=== PATIENT | male | born 1945 | race Two or more races ===

== ENCOUNTER → 2016-08-02 | Outpatient (CLI) | payer MEDICARE, OTHER ==
[~2016-08-02] MED LIST: ALUMSUS; ASPI81CH49; CAPT50TA; CIPR-173; CYCL5TAB; GLYB5TAB8; METF850T; NAPR-604; SIMV-8; TAMS0.4C36
[2016-08-02 15:44] LABS: Basophils # (auto) 0.1 uL; Basophils % (auto) 0.5 % (0.0-2.0); Eosinophils # (auto) 0.1 uL; Eosinophils % (auto) 1.2 % (0.0-7.0); Hematocrit 27.8 % (41.0-53.0); Lymphocytes # (auto) 2.1 uL; Lymphocytes % (auto) 18.5 % (10.0-50.0); Mean Corpuscular Hemoglobin 27.8 pg (28.0-32.0); Mean Corpuscular Hgb Conc. 32.2 g/dL (32.0-36.0); Mean Corpuscular Volume 86.5 fL (80.0-100.0); Mean Platelet Volume 9.7 fL (7.4-10.4); Monocytes # (auto) 0.8 uL; Monocytes % (auto) 7.4 % (0.0-12.0); Neutrophils # (auto) 8.2 uL; Neutrophils % (auto) 72.4 % (37.0-80.0); Platelet Count (auto) 399 10^3/uL (140-450); Red Cell Distribution Width 16.8 % (11.6-16.0); White Blood Cell 11.3 10^3/uL (4.4-10.8)
[2016-08-02 15:51] LABS: Urine Bilirubin Negative (Negative); Urine Color Yellow (Yellow); Urine Glucose Normal (Normal); Urine Ketone Negative (Negative); Urine Nitrite Negative (Negative); Urine Urobilinogen Normal (Negative); Urine pH 6.5 (5.0-8.0)
[2016-08-02 16:26] LABS: Urine Blood 1+ /uL (Negative)
== END | disposition home or self-care (01) ==
LOC: LAB 11:53
PROVIDERS: ATTEND Internal Medicine Cardiovascular Disease
DX: N39.0 Urinary tract infection, site not specified (principal); D64.9 Anemia, unspecified
CPT/HCPCS: 36415; 81003; 85025; 87086

== ENCOUNTER → 2016-08-06 | Outpatient (CLI) | payer MEDICARE, OTHER ==
[~2016-08-06] MED LIST changes: +CYANOCOBALAMIN (B-12) 1000 MCG/1 ML VIAL IM ONE; +CYANOCOBALAMIN (B-12) 1000 MCG/1 ML VIAL ONE
[2016-08-06 10:11] LABS: Basophils # (auto) 0 uL; Basophils % (auto) 0.3 % (0.0-2.0); DEFINITIVE VIEW TRANSMISSION; Eosinophils # (auto) 0.1 uL; Hemoglobin 10.4 g/dL (13.5-17.5); Lymphocytes % (auto) 18.5 % (10.0-50.0); Mean Corpuscular Hemoglobin 25.9 pg (28.0-32.0); Mean Corpuscular Hgb Conc. 30.6 g/dL (32.0-36.0); Mean Corpuscular Volume 84.8 fL (80.0-100.0); Monocytes # (auto) 0.3 uL; Neutrophils # (auto) 8.6 uL; Neutrophils % (auto) 77.2 % (37.0-80.0); Platelet Count (auto) 495 10^3/uL (140-450); Red Cell Distribution Width 16.8 % (11.6-16.0); White Blood Cell 11.1 10^3/uL (4.4-10.8)
[2016-08-06 10:23] LABS: BUN/Creatinine Ratio 12.8; Calcium 8.9 mg/dL (8.5-10.1); Potassium 3.7 mmol/L (3.5-5.1)
[2016-08-06 10:29] LABS: B-Type Natriuretic Peptide 436.17 pg/mL (0-100); Temperature: 22.4 C (20.0-25.0)
== END | disposition home or self-care (01) ==
LOC: Rad HDHVI 08:09
PROVIDERS: ATTEND Internal Medicine Cardiovascular Disease
DX: I10 Essential (primary) hypertension (principal); I50.9 Heart failure, unspecified; D64.9 Anemia, unspecified; I47.1 Supraventricular tachycardia; I48.91 Unspecified atrial fibrillation
CPT/HCPCS: 36415; 80048; 82962; 83880; 84484; 85025; 93306; G0463

== ENCOUNTER 2016-08-11 13:59 | Emergency (ER) | payer MEDICARE, OTHER ==
[~2016-08-11] VITALS: Ht 175.3 cm; Wt 108.9 kg
[~2016-08-11 13:59] MED LIST changes: -CYANOCOBALAMIN (B-12) 1000 MCG/1 ML VIAL IM ONE; -CYANOCOBALAMIN (B-12) 1000 MCG/1 ML VIAL ONE
[2016-08-11 15:24] LABS: Urine Bilirubin Negative (Negative); Urine Color Yellow (Yellow); Urine Glucose Normal (Normal); Urine Ketone Negative (Negative); Urine Mucus FEW (None Seen); Urine RBC 11 /hpf (0 - 3); Urine Urobilinogen Normal (Negative); Urine WBC Clumps PRESENT /hpf (None Seen); Urine pH 6.5 (5.0-8.0)
[2016-08-11 15:25] LABS: Urine Blood 2+ /uL (Negative); Urine Nitrite POSITIVE (Negative)
[2016-08-11 16:06] VITALS: BP 143/75
== END 2016-08-11 16:10 | disposition home or self-care (01) ==
LOC: ER 14:03
DX: T83.091A Other mechanical complication of indwelling urethral catheter, initial encounter (principal); R33.9 Retention of urine, unspecified; N39.0 Urinary tract infection, site not specified; E11.9 Type 2 diabetes mellitus without complications; I10 Essential (primary) hypertension; E78.5 Hyperlipidemia, unspecified; Z79.82 Long term (current) use of aspirin; Z79.899 Other long term (current) drug therapy; Z88.8 Allergy status to other drugs, medicaments and biological substances
CPT/HCPCS: 51702; 81001; 99284; J7030

== ENCOUNTER → 2016-08-13 | Outpatient (CLI) | payer MEDICARE, OTHER ==
[~2016-08-13] MED LIST changes: +GENTAMICIN SULF 80 MG/2 ML VIAL ONE; +GENTAMICIN SULFATE 160 MG in D5W 5% 100 ML IV ONE; +SODIUM CHLORIDE 0.9% 1,000 ML IV ONE
[2016-08-13 08:00] VITALS: BP 111/64
[2016-08-13 17:35] LABS: Basophils # (auto) 0 uL; Basophils % (auto) 0.5 % (0.0-2.0); DEFINITIVE VIEW TRANSMISSION; Eosinophils # (auto) 0.1 uL; Eosinophils % (auto) 1.9 % (0.0-7.0); Hematocrit 29.9 % (41.0-53.0); Hemoglobin 9.4 g/dL (13.5-17.5); Lymphocytes # (auto) 1.7 uL; Lymphocytes % (auto) 22.4 % (10.0-50.0); Mean Corpuscular Hemoglobin 25.5 pg (28.0-32.0); Mean Corpuscular Hgb Conc. 31.5 g/dL (32.0-36.0); Mean Corpuscular Volume 81.2 fL (80.0-100.0); Mean Platelet Volume 9.6 fL (7.4-10.4); Monocytes # (auto) 0.2 uL; Monocytes % (auto) 3.2 % (0.0-12.0); Neutrophils # (auto) 5.3 uL; Platelet Count (auto) 355 10^3/uL (140-450); White Blood Cell 7.4 10^3/uL (4.4-10.8)
== END | disposition home or self-care (01) ==
LOC: CHF HDHVI 07:57
PROVIDERS: ATTEND Internal Medicine Cardiovascular Disease
DX: D64.9 Anemia, unspecified (principal)
CPT/HCPCS: 36415; 85025; 85049; 96365; G0463

== ENCOUNTER → 2016-08-14 | Outpatient (CLI) | payer MEDICARE, OTHER ==
[~2016-08-14] VITALS: Ht 30.5 cm; Wt 0.5 kg
[~2016-08-14] MED LIST changes: +KETOROLAC TROMETH 60MG/2ML VIAL IM ONE; -SODIUM CHLORIDE 0.9% 1,000 ML IV ONE
[2016-08-14 08:00] VITALS: BP 142/72
[2016-08-14] MEDS: KETOROLAC TROMETH 60MG/2ML VIAL IM ONE ×2 (09:14→09:20)
[2016-08-14 09:20] VITALS: BP 132/72
== END | disposition home or self-care (01) ==
LOC: CHF HDHVI 09:42
PROVIDERS: ATTEND Internal Medicine Cardiovascular Disease
DX: I50.9 Heart failure, unspecified (principal); N39.0 Urinary tract infection, site not specified; M25.561 Pain in right knee
CPT/HCPCS: 82962; 96372; 96374; J1580; J1885; 96365

== ENCOUNTER → 2016-08-15 | Outpatient (CLI) | payer MEDICARE, OTHER ==
[~2016-08-15] MED LIST changes: -KETOROLAC TROMETH 60MG/2ML VIAL IM ONE
[2016-08-15 08:00] VITALS: BP 127/55
[2016-08-15 10:29] VITALS: BP 122/51
[2016-08-15 12:58] LABS: Basophils # (auto) 0 uL; Basophils % (auto) 0.6 % (0.0-2.0); DEFINITIVE VIEW TRANSMISSION; Eosinophils # (auto) 0.2 uL; Eosinophils % (auto) 2.7 % (0.0-7.0); Lymphocytes # (auto) 1.7 uL; Lymphocytes % (auto) 23.3 % (10.0-50.0); Mean Corpuscular Hemoglobin 24.8 pg (28.0-32.0); Mean Corpuscular Hgb Conc. 31.2 g/dL (32.0-36.0); Mean Corpuscular Volume 79.5 fL (80.0-100.0); Mean Platelet Volume 9.9 fL (7.4-10.4); Monocytes # (auto) 0.3 uL; Monocytes % (auto) 3.4 % (0.0-12.0); Neutrophils # (auto) 5.2 uL; Platelet Count (auto) 409 10^3/uL (140-450); Red Cell Distribution Width 18.4 % (11.6-16.0); White Blood Cell 7.5 10^3/uL (4.4-10.8)
[2016-08-15 13:40] LABS: BUN/Creatinine Ratio 11.8; Calcium 8.4 mg/dL (8.5-10.1); Potassium 4.3 mmol/L (3.5-5.1)
== END | disposition home or self-care (01) ==
LOC: CHF HDHVI 08:04
PROVIDERS: ATTEND Internal Medicine Cardiovascular Disease
DX: I10 Essential (primary) hypertension (principal); D64.9 Anemia, unspecified
CPT/HCPCS: 36415; 80048; 85025; 85049; 93017; 93971; 96365; G0463

== ENCOUNTER → 2016-08-16 | Outpatient (CLI) | payer MEDICARE, OTHER ==
[~2016-08-16] MED LIST changes: -GENTAMICIN SULF 80 MG/2 ML VIAL ONE; -GENTAMICIN SULFATE 160 MG in D5W 5% 100 ML IV ONE
== END | disposition home or self-care (01) ==
LOC: Rad HDHVI 09:19
PROVIDERS: ATTEND Internal Medicine Cardiovascular Disease
DX: N20.0 Calculus of kidney (principal); N28.1 Cyst of kidney, acquired; N40.0 Benign prostatic hyperplasia without lower urinary tract symptoms; I70.0 Atherosclerosis of aorta
CPT/HCPCS: 74176

== ENCOUNTER → 2016-08-19 | Outpatient (CLI) | payer MEDICARE, OTHER ==
[~2016-08-19] VITALS: Ht 175.3 cm; Wt 115.2 kg
[~2016-08-19] MED LIST changes: +ADENOSINE 90 MG/30 ML INJ IV ONE; +ADENOSINE 97 MG in GIVE UN-DILUTED 0 ML IV ONE
== END | disposition home or self-care (01) ==
LOC: Rad HDHVI 13:40
PROVIDERS: ATTEND Internal Medicine Cardiovascular Disease
DX: R07.9 Chest pain, unspecified (principal); R06.02 Shortness of breath; R42 Dizziness and giddiness; I10 Essential (primary) hypertension; Z82.49 Family history of ischemic heart disease and other diseases of the circulatory system
CPT/HCPCS: 78452; 93005; 96374; 96375; A9500; J0153

== ENCOUNTER → 2016-08-22 | Outpatient (CLI) | payer MEDICARE, OTHER ==
[~2016-08-22] MED LIST changes: -ADENOSINE 90 MG/30 ML INJ IV ONE; -ADENOSINE 97 MG in GIVE UN-DILUTED 0 ML IV ONE
[2016-08-22 09:45] VITALS: BP 146/56
[2016-08-22 10:15] VITALS: BP 117/65
== END | disposition home or self-care (01) ==
LOC: CHF HDHVI 09:47
PROVIDERS: ATTEND Internal Medicine Cardiovascular Disease
DX: I11.0 Hypertensive heart disease with heart failure (principal); D64.9 Anemia, unspecified; E11.9 Type 2 diabetes mellitus without complications; I82.499 Acute embolism and thrombosis of other specified deep vein of unspecified lower extremity
CPT/HCPCS: G0463

== ENCOUNTER → 2016-08-28 | Outpatient (CLI) | payer MEDICARE, OTHER ==
[~2016-08-28] VITALS: Ht 30.5 cm; Wt 0.5 kg
[~2016-08-28] MED LIST changes: +FUROSEMIDE 40 MG/4 ML VIAL IV ONE; +FUROSEMIDE 40 MG/4 ML VIAL ONE; +POTASSIUM CHL 10 Meq TABLET PO ONE
[2016-08-28 12:45] VITALS: BP 118/72
[2016-08-28 13:06] VITALS: BP 111/71
[2016-08-28 16:39] LABS: Calcium 8.8 mg/dL (8.5-10.1); Potassium 4.1 mmol/L (3.5-5.1)
[2016-08-28 17:08] LABS: BUN/Creatinine Ratio 12.6
[2016-08-28 17:09] LABS: B-Type Natriuretic Peptide 277.13 pg/mL (0-100)
== END | disposition home or self-care (01) ==
LOC: CHF HDHVI 12:44
PROVIDERS: ATTEND Internal Medicine Cardiovascular Disease
DX: I10 Essential (primary) hypertension (principal); I50.9 Heart failure, unspecified
CPT/HCPCS: 36415; 80048; 82962; 83880; G0463

== ENCOUNTER → 2016-09-04 | Outpatient (CLI) | payer MEDICARE, OTHER ==
[~2016-09-04] MED LIST changes: +POTASSIUM CHL 20 Meq TABLET PO ONE
[2016-09-04 12:30] VITALS: BP 115/68
[2016-09-04 12:52] VITALS: BP 118/59
== END | disposition home or self-care (01) ==
LOC: CHF HDHVI 12:41
PROVIDERS: ATTEND Internal Medicine Cardiovascular Disease
DX: I10 Essential (primary) hypertension (principal); I50.9 Heart failure, unspecified; R06.02 Shortness of breath; R07.9 Chest pain, unspecified
CPT/HCPCS: 96374; G0463; J1940; 96365

== ENCOUNTER → 2016-09-09 | Outpatient (CLI) | payer MEDICARE, OTHER ==
[~2016-09-09] MED LIST changes: +FUROSEMIDE 100 MG/10ML VIAL IV ONE; -FUROSEMIDE 40 MG/4 ML VIAL IV ONE
[2016-09-09 08:35] VITALS: BP_SYST 79
[2016-09-09 13:39] LABS: BUN/Creatinine Ratio 12.5; Calcium 8.5 mg/dL (8.5-10.1); Magnesium 2.3 mg/dL (1.6-2.6); Potassium 4.4 mmol/L (3.5-5.1)
== END | disposition home or self-care (01) ==
LOC: LAB 07:51
PROVIDERS: ATTEND Internal Medicine Cardiovascular Disease
DX: I10 Essential (primary) hypertension (principal); E83.40 Disorders of magnesium metabolism, unspecified
CPT/HCPCS: 36415; 80048; 83735; 96374; G0463

== ENCOUNTER → 2016-09-20 | Outpatient (CLI) | payer MEDICARE, OTHER ==
[~2016-09-20] VITALS: Ht 172.7 cm; Wt 70.0 kg
[~2016-09-20] MED LIST changes: -ALUMSUS; +APIX2.5T OR; -ASPI81CH49; -CAPT50TA; +CARI350T21 PO; -CIPR-173; +CYANOCOBALAMIN (B-12) 1000 MCG/1 ML VIAL IM ONE; +CYANOCOBALAMIN (B-12) 1000 MCG/1 ML VIAL ONE; -CYCL5TAB; +DILT360C24 PO; +FINA5TAB4 PO; +FURO40TA4 PO; -FUROSEMIDE 100 MG/10ML VIAL IV ONE; +FUROSEMIDE 20 MG/2 ML VIAL IV ONE; +FUROSEMIDE 20 MG/2 ML VIAL ONE; +FUROSEMIDE 40 MG/4 ML VIAL IV ONE; +GLIP-115 PO; -GLYB5TAB8; +HCTZ25T PO; +LEVO500T3 PO; +METF-490 PO; -METF850T; -NAPR-604; +PANT40T PO; -POTASSIUM CHL 10 Meq TABLET PO ONE; -SIMV-8; -TAMS0.4C36
[2016-09-20 08:00] VITALS: BP 133/94
[2016-09-20 09:25] VITALS: BP 126/77
== END | disposition home or self-care (01) ==
LOC: CHF HDHVI 08:01
PROVIDERS: ATTEND Internal Medicine Cardiovascular Disease
DX: I11.0 Hypertensive heart disease with heart failure (principal); I50.9 Heart failure, unspecified; I82.409 Acute embolism and thrombosis of unspecified deep veins of unspecified lower extremity; D64.9 Anemia, unspecified; N39.0 Urinary tract infection, site not specified
CPT/HCPCS: 96372; 96374; G0463; J1940; J3420

== ENCOUNTER 2016-09-22 20:21 | Emergency (ER) | payer MEDICARE, OTHER ==
[~2016-09-22] VITALS: Ht 175.3 cm; Wt 111.1 kg
[~2016-09-22 20:21] MED LIST changes: -CYANOCOBALAMIN (B-12) 1000 MCG/1 ML VIAL IM ONE; -CYANOCOBALAMIN (B-12) 1000 MCG/1 ML VIAL ONE; -FUROSEMIDE 20 MG/2 ML VIAL IV ONE; -FUROSEMIDE 20 MG/2 ML VIAL ONE; -FUROSEMIDE 40 MG/4 ML VIAL IV ONE; -FUROSEMIDE 40 MG/4 ML VIAL ONE; -POTASSIUM CHL 20 Meq TABLET PO ONE
[2016-09-22 20:53] VITALS: BP 155/72
== END 2016-09-22 22:02 | disposition home or self-care (01) ==
LOC: ER 20:32
DX: T83.098A Other mechanical complication of other urinary catheter, initial encounter (principal); Z76.1 Encounter for health supervision and care of foundling; Z46.6 Encounter for fitting and adjustment of urinary device; Z91.041 Radiographic dye allergy status; E11.9 Type 2 diabetes mellitus without complications; E78.5 Hyperlipidemia, unspecified; I10 Essential (primary) hypertension; Y93.89 Activity, other specified; Y99.8 Other external cause status; Y92.89 Other specified places as the place of occurrence of the external cause
CPT/HCPCS: 51702

== ENCOUNTER → 2016-09-25 | Outpatient (CLI) | payer MEDICARE, OTHER ==
[2016-09-25 12:10] LABS: Basophils # (auto) 0 uL; Basophils % (auto) 0.6 % (0.0-2.0); DEFINITIVE VIEW TRANSMISSION; Eosinophils # (auto) 0.1 uL; Eosinophils % (auto) 1.4 % (0.0-7.0); Hematocrit 33.5 % (41.0-53.0); Hemoglobin 10.2 g/dL (13.5-17.5); Lymphocytes % (auto) 26.3 % (10.0-50.0); Mean Corpuscular Hemoglobin 21.6 pg (28.0-32.0); Mean Corpuscular Hgb Conc. 30.6 g/dL (32.0-36.0); Mean Corpuscular Volume 70.6 fL (80.0-100.0); Mean Platelet Volume 10.6 fL (7.4-10.4); Monocytes # (auto) 0.4 uL; Monocytes % (auto) 4.7 % (0.0-12.0); Neutrophils # (auto) 5.2 uL; Platelet Count (auto) 360 10^3/uL (140-450); Red Cell Distribution Width 18.9 % (11.6-16.0); White Blood Cell 7.7 10^3/uL (4.4-10.8)
== END | disposition home or self-care (01) ==
LOC: CHF HDHVI 09:04
PROVIDERS: ATTEND Internal Medicine Cardiovascular Disease
DX: D64.9 Anemia, unspecified (principal)
CPT/HCPCS: 36415; 85025

== ENCOUNTER → 2016-10-30 | Outpatient (CLI) | payer MEDICARE, OTHER ==
[2016-10-30 10:25] VITALS: BP 143/67
[2016-10-30 11:00] VITALS: BP 136/70
[2016-10-30 12:14] LABS: Basophils # (auto) 0 uL; Basophils % (auto) 0.6 % (0.0-2.0); DEFINITIVE VIEW TRANSMISSION; Eosinophils # (auto) 0.1 uL; Eosinophils % (auto) 1.3 % (0.0-7.0); Hematocrit 35.6 % (41.0-53.0); Hemoglobin 10.8 g/dL (13.5-17.5); Lymphocytes # (auto) 1.7 uL; Lymphocytes % (auto) 23.2 % (10.0-50.0); Mean Corpuscular Hgb Conc. 30.4 g/dL (32.0-36.0); Mean Corpuscular Volume 65.6 fL (80.0-100.0); Mean Platelet Volume 10.3 fL (7.4-10.4); Monocytes # (auto) 0.4 uL; Monocytes % (auto) 4.8 % (0.0-12.0); Neutrophils # (auto) 5.2 uL; Neutrophils % (auto) 70.1 % (37.0-80.0); Platelet Count (auto) 337 10^3/uL (140-450); Red Cell Distribution Width 19.1 % (11.6-16.0); White Blood Cell 7.4 10^3/uL (4.4-10.8)
[2016-10-30 12:59] LABS: Potassium 3.6 mmol/L (3.5-5.1)
[2016-10-30 13:32] LABS: INR 0.93 (0.9-1.15); Partial Thromboplastin Time 25.9 sec (22.64-33.71)
[2016-10-30 13:56] LABS: Burr Cells FEW; Ovalocytes MODE
[2016-10-30 13:57] LABS: Platelet Estimate Adequate
[2016-10-30 13:58] LABS: Anisocytosis Slight
[2016-10-30 13:59] LABS: Hypochromia Marked; Microcytosis Marked
== END | disposition home or self-care (01) ==
LOC: Rad HDHVI 10:01
PROVIDERS: ATTEND Internal Medicine Cardiovascular Disease
DX: I10 Essential (primary) hypertension (principal); D64.9 Anemia, unspecified; R79.1 Abnormal coagulation profile; Z01.812 Encounter for preprocedural laboratory examination
CPT/HCPCS: 36415; 71020; 80048; 85025; 85610; 85730; 93005; G0463

== ENCOUNTER → 2016-10-31 | Day surgery (SDC) | payer MEDICARE, OTHER ==
[~2016-10-31] MED LIST changes: +LIDOCAINE 2%HCL (LOCAL ANESTH.) INJ 20ML MDV ONE; +diphenhdrAMINE HCL 50 MG/1 ML VL IV ONE; +methylPREDNISolone SOD SUCC 125 MG/2 ML VL IV ONE
== END | disposition home or self-care (01) ==
LOC: CATH 09:10
PROVIDERS: ATTEND Internal Medicine Cardiovascular Disease
DX: Z95.828 Presence of other vascular implants and grafts (principal); I82.499 Acute embolism and thrombosis of other specified deep vein of unspecified lower extremity; I10 Essential (primary) hypertension; E78.5 Hyperlipidemia, unspecified
CPT/HCPCS: 37191; J1200; J1644; J2930

== ENCOUNTER 2017-02-23 10:38 | Emergency (ER) | payer MEDICARE, OTHER ==
[~2017-02-23] VITALS: Ht 175.3 cm; Wt 113.4 kg
[~2017-02-23 10:38] MED LIST changes: +CARI-316 PO; -CARI350T21 PO; +LEVO500T21 PO; -LEVO500T3 PO; -LIDOCAINE 2%HCL (LOCAL ANESTH.) INJ 20ML MDV ONE; -diphenhdrAMINE HCL 50 MG/1 ML VL IV ONE; -methylPREDNISolone SOD SUCC 125 MG/2 ML VL IV ONE
[2017-02-23] MEDS ORDERED: PROMETHAZINE HCL 25 MG/ML 1ML IV ONE (13:30)
[2017-02-23] MEDS ORDERED: HYDROmorphone HCL 2 MG/ML VL IV ONE (13:30)
[2017-02-23] MEDS ORDERED: LEVOFLOXACIN 500 MG TAB PO ONE (15:45)
[2017-02-23 15:49] VITALS: BP 129/72
== END 2017-02-23 15:53 | disposition home or self-care (01) ==
LOC: ER 10:38
DX: N44.00 Torsion of testis, unspecified (principal); N40.1 Benign prostatic hyperplasia with lower urinary tract symptoms; N43.3 Hydrocele, unspecified; Z96.0 Presence of urogenital implants; I50.9 Heart failure, unspecified; I11.0 Hypertensive heart disease with heart failure; E11.9 Type 2 diabetes mellitus without complications; E78.5 Hyperlipidemia, unspecified; Z79.899 Other long term (current) drug therapy; Z91.041 Radiographic dye allergy status
CPT/HCPCS: 54600; 76870; 81002; 96374; 96375; 99284; J1170; J2550; J7030

== ENCOUNTER 2017-04-05 11:30 | Emergency (ER) | payer MEDICARE, OTHER ==
[~2017-04-05] VITALS: Ht 175.3 cm; Wt 112.0 kg
[2017-04-05 16:08] LABS: Albumin 3.6 g/dL (3.4-5.0); Anion Gap 11 (5-15); Aspartate Aminotransferase 13 U/L (15-37); BUN/Creatinine Ratio 14.7; Blood Urea Nitrogen 17 mg/dL (7-18); Calcium 8.7 mg/dL (8.5-10.1); Carbon Dioxide 23 mmol/L (21-32); Chloride 109 mmol/L (98-107); GFR African American 80 mL/min; GFR Non-African American 66 mL/min; Glucose 181 mg/dL (74-106); Potassium 3.4 mmol/L (3.5-5.1); Sodium 143 mmol/L (136-145)
[2017-04-05 16:10] LABS: White Blood Cell 9.9 10^3/uL (4.4-10.8)
[2017-04-05 16:11] LABS: Basophils # (auto) 0.1 uL; Basophils % (auto) 0.7 % (0.0-2.0); Eosinophils # (auto) 0.1 uL; Eosinophils % (auto) 0.6 % (0.0-7.0); Lymphocytes # (auto) 2.3 uL; Lymphocytes % (auto) 23.2 % (10.0-50.0); Monocytes # (auto) 0.4 uL; Monocytes % (auto) 4.5 % (0.0-12.0)
[2017-04-05 16:12] LABS: Hematocrit 45.8 % (41.0-53.0); Mean Corpuscular Hemoglobin 25.9 pg (28.0-32.0); Mean Corpuscular Hgb Conc. 32.8 g/dL (32.0-36.0); Mean Corpuscular Volume 79.1 fL (80.0-100.0); Mean Platelet Volume 8.5 fL (7.4-10.4); Platelet Count (auto) 215 10^3/uL (140-450); Red Cell Distribution Width 24.7 % (11.6-16.0)
[2017-04-05 16:13] LABS: Alkaline Phosphatase 92 U/L (45-117); Bilirubin, Total 0.5 mg/dL (0.2-1.0); Total Protein 7.5 g/dL (6.4-8.2)
[2017-04-05 16:16] LABS: B-Type Natriuretic Peptide 222.32 pg/mL (0-100)
[2017-04-05 16:25] LABS: Temperature: 23.3 C (20.0-25.0)
[2017-04-05 16:27] LABS: Platelet Estimate Adequate
[2017-04-05 16:28] LABS: Anisocytosis Slight; Microcytosis Slight; Ovalocytes FEW
[2017-04-05 16:45] LABS: INR 0.95 (0.9-1.15); Partial Thromboplastin Time 29.8 sec (22.64-33.71); Prothrombin Time 10.4 sec (9.37-12.3)
[2017-04-05 17:00] VITALS: BP 125/83
[2017-04-05] MEDS ORDERED: LIDOCAINE 1% HCL (LOCAL ANESTH.) INJ 20ML MDV ID ONE (18:00)
[2017-04-05] MEDS ORDERED: SODIUM CHLOR 0.9% PF (SALINE LOCK) 10ML VIAL IV SCH (22:00)
== END 2017-04-05 19:36 | disposition home or self-care (01) ==
LOC: ER 11:30
DX: I11.0 Hypertensive heart disease with heart failure (principal); I50.9 Heart failure, unspecified; K21.9 Gastro-esophageal reflux disease without esophagitis; Z95.9 Presence of cardiac and vascular implant and graft, unspecified; E78.5 Hyperlipidemia, unspecified; E11.9 Type 2 diabetes mellitus without complications; Z91.041 Radiographic dye allergy status
CPT/HCPCS: 36415; 36569; 71010; 80053; 83880; 84484; 85025; 85610; 85730; 99285; C1751; J7050

== ENCOUNTER → 2017-06-13 | Outpatient (CLI) | payer MEDICARE, OTHER ==
[2017-06-13 13:37] LABS: Urine Bilirubin Negative (Negative); Urine Blood 1+ /uL (Negative); Urine Color Yellow (Yellow); Urine Glucose Normal (Normal); Urine Ketone Negative (Negative); Urine Nitrite POSITIVE (Negative); Urine Urobilinogen Normal (Negative); Urine pH 6.5 (5.0-8.0)
[2017-06-13 13:40] LABS: Basophils # (auto) 0 uL; Basophils % (auto) 0.4 % (0.0-2.0); Eosinophils # (auto) 0.1 uL; Eosinophils % (auto) 0.9 % (0.0-7.0); Hematocrit 42.2 % (41.0-53.0); Hemoglobin 13.6 g/dL (13.5-17.5); Lymphocytes # (auto) 1.9 uL; Mean Corpuscular Hemoglobin 28.1 pg (28.0-32.0); Mean Corpuscular Hgb Conc. 32.1 g/dL (32.0-36.0); Mean Corpuscular Volume 87.6 fL (80.0-100.0); Mean Platelet Volume 8.7 fL (6.9-10.8); Monocytes # (auto) 0.4 uL; Monocytes % (auto) 5.3 % (0.0-12.0); Neutrophils # (auto) 4.6 uL; Neutrophils % (auto) 66.4 % (37.0-80.0); Nucleated Red Blood Cells % 0.8 %; Platelet Count (auto) 248 10^3/uL (140-450); Red Cell Distribution Width 18.1 % (11.8-14.3); White Blood Cell 6.9 10^3/uL (4.4-10.8)
[2017-06-13 14:09] LABS: Albumin 3.8 g/dL (3.4-5.0); BUN/Creatinine Ratio 16.7; Bilirubin, Direct 0.2 mg/dL (0-0.2); Bilirubin, Total 0.8 mg/dL (0.2-1.0); Calcium 9.5 mg/dL (8.5-10.1)
== END | disposition home or self-care (01) ==
LOC: LAB 07:58
PROVIDERS: ATTEND Internal Medicine Cardiovascular Disease
DX: I10 Essential (primary) hypertension (principal); E78.00 Pure hypercholesterolemia, unspecified; K74.1 Hepatic sclerosis; E11.9 Type 2 diabetes mellitus without complications; E03.9 Hypothyroidism, unspecified; D64.9 Anemia, unspecified; E55.9 Vitamin D deficiency, unspecified; N39.0 Urinary tract infection, site not specified
CPT/HCPCS: 36415; 80048; 80061; 80076; 81003; 82306; 83036; 84443; 85025

== ENCOUNTER → 2017-06-27 | Outpatient (CLI) | payer MEDICARE, OTHER ==
[2017-06-27 15:12] LABS: Urine Bilirubin Negative (Negative); Urine Blood Negative /uL (Negative); Urine Color Yellow (Yellow); Urine Glucose Normal (Normal); Urine Ketone Negative (Negative); Urine Nitrite POSITIVE (Negative); Urine Urobilinogen Normal (Negative)
== END | disposition home or self-care (01) ==
LOC: LAB 09:30
PROVIDERS: ATTEND Internal Medicine Cardiovascular Disease
DX: N39.0 Urinary tract infection, site not specified (principal)
CPT/HCPCS: 81003; 87086; 87088; 87186

== ENCOUNTER → 2017-07-15 | Outpatient (CLI) | payer MEDICARE, OTHER ==
[~2017-07-15] MED LIST changes: +VANCOMYCIN 1GM/250ML 250 ML IV ONE
[2017-07-15 11:45] VITALS: BP 125/53
== END | disposition home or self-care (01) ==
LOC: CHF HDHVI 10:25
PROVIDERS: ATTEND Internal Medicine Cardiovascular Disease
DX: N39.0 Urinary tract infection, site not specified (principal)
CPT/HCPCS: 87086; G0463; J3370

== ENCOUNTER → 2017-09-09 | Outpatient (CLI) | payer MEDICARE, OTHER ==
[~2017-09-09] MED LIST changes: -VANCOMYCIN 1GM/250ML 250 ML IV ONE
== END | disposition home or self-care (01) ==
LOC: Rad HDHVI 11:42
PROVIDERS: ATTEND Internal Medicine Cardiovascular Disease
DX: M79.89 Other specified soft tissue disorders (principal)
CPT/HCPCS: 93970

== ENCOUNTER → 2017-09-19 | Outpatient (CLI) | payer MEDICARE, OTHER ==
[2017-09-19 16:25] LABS: Urine Blood Negative /uL (Negative); Urine Specific Gravity 1.018 (1.001-1.035)
== END | disposition home or self-care (01) ==
LOC: LAB 11:30
PROVIDERS: ATTEND Internal Medicine Cardiovascular Disease
DX: N39.0 Urinary tract infection, site not specified (principal)
CPT/HCPCS: 81003; 87086; 87088; 87186

== ENCOUNTER → 2017-09-23 | Outpatient (CLI) | payer MEDICARE, OTHER ==
[~2017-09-23] MED LIST changes: +IOHEXOL 350 MG/ML 100ML IJ ONE; +PIPERACILLIN-TAZO 4.5GM 50 ML IV ONE; +diphenhdrAMINE HCL 50 MG/1 ML VL IV ONE; +diphenhdrAMINE HCL 50 MG/1 ML VL ONE; +methylPREDNISolone SOD SUCC 125 MG/2 ML VL IM ONE; +methylPREDNISolone SOD SUCC 125 MG/2 ML VL ONE
[2017-09-23 10:40] VITALS: BP 164/96
[2017-09-23 11:50] VITALS: BP 133/84
== END | disposition home or self-care (01) ==
LOC: Rad HDHVI 10:16
PROVIDERS: ATTEND Internal Medicine Cardiovascular Disease
DX: G31.89 Other specified degenerative diseases of nervous system (principal); I70.90 Unspecified atherosclerosis
CPT/HCPCS: 70470; 82565; 96365; 96374; 96375; G0463; J1200; J2543; J2930; Q9967

== ENCOUNTER → 2017-09-24 | Outpatient (CLI) | payer MEDICARE, OTHER ==
[~2017-09-24] MED LIST changes: +CYANOCOBALAMIN (B-12) 1000 MCG/1 ML VIAL IM ONE; +CYANOCOBALAMIN (B-12) 1000 MCG/1 ML VIAL ONE; -IOHEXOL 350 MG/ML 100ML IJ ONE; -diphenhdrAMINE HCL 50 MG/1 ML VL IV ONE; -diphenhdrAMINE HCL 50 MG/1 ML VL ONE; -methylPREDNISolone SOD SUCC 125 MG/2 ML VL IM ONE; -methylPREDNISolone SOD SUCC 125 MG/2 ML VL ONE
[2017-09-24 09:23] LABS: Basophils # (auto) 0 uL; Basophils % (auto) 0.3 % (0.0-2.0); Eosinophils # (auto) 0 uL; Hemoglobin 14.3 g/dL (13.5-17.5); Lymphocytes # (auto) 1.6 uL; Lymphocytes % (auto) 9.7 % (10.0-50.0); Mean Corpuscular Hemoglobin 27.9 pg (28.0-32.0); Mean Corpuscular Hgb Conc. 32.5 g/dL (32.0-36.0); Mean Corpuscular Volume 85.7 fL (80.0-100.0); Monocytes # (auto) 0.8 uL; Neutrophils # (auto) 14.4 uL; Platelet Count (auto) 273 10^3/uL (140-450); Red Blood Cells 5.13 10^6/uL (4.5-5.90); Red Cell Distribution Width 16.4 % (11.8-14.3); White Blood Cell 16.9 10^3/uL (4.4-10.8)
[2017-09-24 09:37] LABS: Alanine Aminotransferase 46 U/L (16-61); Alkaline Phosphatase 125 U/L (45-117); Anion Gap 11 (5-15); Aspartate Aminotransferase 24 U/L (15-37); BUN/Creatinine Ratio 14.8; Bilirubin, Total 0.7 mg/dL (0.2-1.0); Blood Urea Nitrogen 19 mg/dL (7-18); Calcium 9.8 mg/dL (8.5-10.1); Carbon Dioxide 24 mmol/L (21-32); Chloride 104 mmol/L (98-107); GFR African American 71 mL/min; GFR Non-African American 59 mL/min; Glucose 354 mg/dL (74-106); Magnesium 2.9 mg/dL (1.6-2.6); Potassium 4.2 mmol/L (3.5-5.1); Sodium 139 mmol/L (136-145); Total Protein 8.5 g/dL (6.4-8.2)
[2017-09-24 12:35] VITALS: BP 143/82
== END | disposition home or self-care (01) ==
LOC: CHF HDHVI 08:13
PROVIDERS: ATTEND Internal Medicine Cardiovascular Disease
DX: I20.9 Angina pectoris, unspecified (principal); I11.0 Hypertensive heart disease with heart failure; I50.9 Heart failure, unspecified; D64.9 Anemia, unspecified; R97.20 Elevated prostate specific antigen [PSA]; E55.9 Vitamin D deficiency, unspecified; E11.9 Type 2 diabetes mellitus without complications
CPT/HCPCS: 36415; 71275; 80053; 82306; 82565; 83036; 83735; 84153; 84484; 85025; 96365; 96372; 96375; G0463; J2543; J3420; Q9967

== ENCOUNTER → 2017-09-25 | Outpatient (CLI) | payer MEDICARE, OTHER ==
[~2017-09-25] MED LIST changes: -CYANOCOBALAMIN (B-12) 1000 MCG/1 ML VIAL IM ONE; -CYANOCOBALAMIN (B-12) 1000 MCG/1 ML VIAL ONE
[2017-09-25 11:50] VITALS: BP 127/70
== END | disposition home or self-care (01) ==
LOC: CHF HDHVI 11:14
PROVIDERS: ATTEND Internal Medicine Cardiovascular Disease
DX: N39.0 Urinary tract infection, site not specified (principal); I25.10 Atherosclerotic heart disease of native coronary artery without angina pectoris; E11.9 Type 2 diabetes mellitus without complications
CPT/HCPCS: 96365; G0463; J2543

== ENCOUNTER → 2017-12-08 | Outpatient (CLI) | payer MEDICARE, OTHER ==
[~2017-12-08] MED LIST changes: +IOHEXOL 350 MG/ML 100ML IJ ONE; -PIPERACILLIN-TAZO 4.5GM 50 ML IV ONE; +SODIUM CHLORIDE 0.9% 250 ML IV ONE; +diphenhdrAMINE HCL 50 MG/1 ML VL IV ONE; +diphenhdrAMINE HCL 50 MG/1 ML VL ONE; +methylPREDNISolone SOD SUCC 125 MG/2 ML VL IV ONE; +methylPREDNISolone SOD SUCC 125 MG/2 ML VL ONE
[2017-12-08 14:00] VITALS: BP 141/86
[2017-12-08 15:57] LABS: Basophils # (auto) 0 uL; Basophils % (auto) 0.4 % (0.0-2.0); Eosinophils # (auto) 0 uL; Eosinophils % (auto) 0.2 % (0.0-7.0); Hematocrit 45.1 % (41.0-53.0); Hemoglobin 15.1 g/dL (13.5-17.5); Lymphocytes # (auto) 1.5 uL; Lymphocytes % (auto) 17.1 % (10.0-50.0); Mean Corpuscular Hemoglobin 29.7 pg (28.0-32.0); Mean Corpuscular Hgb Conc. 33.6 g/dL (32.0-36.0); Mean Corpuscular Volume 88.4 fL (80.0-100.0); Monocytes # (auto) 0.5 uL; Monocytes % (auto) 5.9 % (0.0-12.0); Neutrophils # (auto) 6.8 uL; Neutrophils % (auto) 76.4 % (37.0-80.0); Nucleated Red Blood Cells % 0.4 %; Platelet Count (auto) 250 10^3/uL (140-450); Red Cell Distribution Width 15.1 % (11.8-14.3); White Blood Cell 8.9 10^3/uL (4.4-10.8)
[2017-12-08 16:05] LABS: Albumin 3.5 g/dL (3.4-5.0); BUN/Creatinine Ratio 17.4; Bilirubin, Total 0.5 mg/dL (0.2-1.0); Calcium 8.8 mg/dL (8.5-10.1); Potassium 3.7 mmol/L (3.5-5.1); Total Protein 7.9 g/dL (6.4-8.2)
[2017-12-08 16:10] LABS: Urine Bacteria NONE SEEN /hpf (None Seen); Urine Blood TRACE /uL (Negative); Urine Specific Gravity 1.014 (1.001-1.035); Urine WBC 82 /hpf (0 - 3); Urine WBC Clumps PRESENT /hpf (None Seen)
== END | disposition home or self-care (01) ==
LOC: LAB 10:58
PROVIDERS: ATTEND Internal Medicine
DX: D64.9 Anemia, unspecified (principal); I10 Essential (primary) hypertension; N39.0 Urinary tract infection, site not specified; E11.65 Type 2 diabetes mellitus with hyperglycemia; N40.0 Benign prostatic hyperplasia without lower urinary tract symptoms; K76.89 Other specified diseases of liver; N32.9 Bladder disorder, unspecified; I70.0 Atherosclerosis of aorta
CPT/HCPCS: 36415; 74177; 80053; 81001; 82962; 85025; 87086; 87088; 87186; 96361; 96372; 96374; 96375; G0463; J1200; J2930; Q9967

== ENCOUNTER → 2018-02-26 | Outpatient (CLI) | payer MEDICARE, OTHER ==
[~2018-02-26] MED LIST changes: -CARI-316 PO; +CARI350T22 PO; +DILT1CAP PO; -DILT360C24 PO; -IOHEXOL 350 MG/ML 100ML IJ ONE; -SODIUM CHLORIDE 0.9% 250 ML IV ONE; +cefTRIAXone 1GM/10ml IVPUSH 10 ML IV ONE; -diphenhdrAMINE HCL 50 MG/1 ML VL IV ONE; -diphenhdrAMINE HCL 50 MG/1 ML VL ONE; -methylPREDNISolone SOD SUCC 125 MG/2 ML VL IV ONE; -methylPREDNISolone SOD SUCC 125 MG/2 ML VL ONE
[2018-02-26 16:00] VITALS: BP 137/71
[2018-02-26 16:35] VITALS: BP 122/76
[2018-02-27 11:55] LABS: Basophils # (auto) 0.1 uL; Basophils % (auto) 0.7 % (0.0-2.0); Eosinophils # (auto) 0 uL; Eosinophils % (auto) 0.6 % (0.0-7.0); Hemoglobin 13.2 g/dL (13.5-17.5); Lymphocytes # (auto) 1.9 uL; Lymphocytes % (auto) 25.4 % (10.0-50.0); Mean Corpuscular Hemoglobin 29.7 pg (28.0-32.0); Mean Corpuscular Hgb Conc. 32.3 g/dL (32.0-36.0); Mean Corpuscular Volume 92.1 fL (80.0-100.0); Monocytes # (auto) 0.4 uL; Monocytes % (auto) 5.1 % (0.0-12.0); Neutrophils % (auto) 68.2 % (37.0-80.0); Nucleated Red Blood Cells % 0.1 %; Platelet Count (auto) 277 10^3/uL (140-450); Red Blood Cells 4.45 10^6/uL (4.5-5.90); Red Cell Distribution Width 15.4 % (11.8-14.3); White Blood Cell 7.3 10^3/uL (4.4-10.8)
[2018-02-27 12:44] LABS: BUN/Creatinine Ratio 15.7; Calcium 8.9 mg/dL (8.5-10.1); Potassium 4.3 mmol/L (3.5-5.1)
== END | disposition home or self-care (01) ==
LOC: CHF HDHVI 16:05
PROVIDERS: ATTEND Internal Medicine
DX: L08.9 Local infection of the skin and subcutaneous tissue, unspecified (principal); D64.9 Anemia, unspecified; I10 Essential (primary) hypertension; I70.0 Atherosclerosis of aorta; E11.9 Type 2 diabetes mellitus without complications
CPT/HCPCS: 36415; 80048; 85025; 96374; G0463; J0696

== ENCOUNTER → 2018-03-10 | Outpatient (CLI) | payer MEDICARE, OTHER ==
[~2018-03-10] MED LIST changes: -cefTRIAXone 1GM/10ml IVPUSH 10 ML IV ONE
== END | disposition home or self-care (01) ==
LOC: Rad HDHVI 13:40
PROVIDERS: ATTEND Internal Medicine
DX: I87.9 Disorder of vein, unspecified (principal); M79.89 Other specified soft tissue disorders
CPT/HCPCS: 93970

== ENCOUNTER → 2018-03-31 | Outpatient (CLI) | payer MEDICARE, OTHER ==
[~2018-03-31] VITALS: Ht 30.5 cm; Wt 0.5 kg
[~2018-03-31] MED LIST changes: +FUROSEMIDE 40 MG/4 ML VIAL IV ONE; +FUROSEMIDE 40 MG/4 ML VIAL ONE; +POTASSIUM CHL 10 Meq TABLET PO ONE; +POTASSIUM CHL 20 Meq TABLET PO ONE
[2018-03-31 17:00] VITALS: BP 130/80
[2018-03-31 17:20] VITALS: BP 134/79
== END | disposition home or self-care (01) ==
LOC: CHF HDHVI 17:03
PROVIDERS: ATTEND Internal Medicine Cardiovascular Disease
DX: I25.10 Atherosclerotic heart disease of native coronary artery without angina pectoris (principal); E11.9 Type 2 diabetes mellitus without complications; I10 Essential (primary) hypertension
CPT/HCPCS: 96374; G0463; J1940

== ENCOUNTER → 2018-05-07 | Outpatient (CLI) | payer MEDICARE, OTHER ==
[~2018-05-07] MED LIST changes: -FUROSEMIDE 40 MG/4 ML VIAL IV ONE; -FUROSEMIDE 40 MG/4 ML VIAL ONE; -POTASSIUM CHL 10 Meq TABLET PO ONE; -POTASSIUM CHL 20 Meq TABLET PO ONE
== END | disposition home or self-care (01) ==
LOC: Rad HDHVI 13:10
PROVIDERS: ATTEND Internal Medicine
DX: I10 Essential (primary) hypertension (principal); I25.10 Atherosclerotic heart disease of native coronary artery without angina pectoris; I48.91 Unspecified atrial fibrillation
CPT/HCPCS: 93306

== ENCOUNTER → 2018-08-20 | Outpatient (CLI) | payer MEDICARE, OTHER ==
[~2018-08-20] VITALS: Ht 175.3 cm; Wt 112.5 kg
[2018-08-20 12:09] LABS: Urine Blood Negative /uL (Negative); Urine Specific Gravity 1.013 (1.001-1.035)
[2018-08-20 12:11] LABS: Basophils # (auto) 0 uL; Basophils % (auto) 0.5 % (0.0-2.0); Eosinophils # (auto) 0 uL; Eosinophils % (auto) 0.6 % (0.0-7.0); Hematocrit 45.1 % (41.0-53.0); Hemoglobin 15.2 g/dL (13.5-17.5); Lymphocytes # (auto) 1.4 uL; Lymphocytes % (auto) 23.8 % (10.0-50.0); Mean Corpuscular Hemoglobin 29.3 pg (28.0-32.0); Mean Corpuscular Hgb Conc. 33.8 g/dL (32.0-36.0); Mean Corpuscular Volume 86.7 fL (80.0-100.0); Monocytes # (auto) 0.4 uL; Neutrophils # (auto) 4.1 uL; Neutrophils % (auto) 69.1 % (37.0-80.0); Nucleated Red Blood Cells % 0.4 %; Platelet Count (auto) 197 10^3/uL (140-450); Red Cell Distribution Width 15.3 % (11.8-14.3); White Blood Cell 5.9 10^3/uL (4.4-10.8)
[2018-08-20 13:01] LABS: Alanine Aminotransferase 22 U/L (16-61); Albumin 3.9 g/dL (3.4-5.0); Anion Gap 5 (5-15); Aspartate Aminotransferase 12 U/L (15-37); BUN/Creatinine Ratio 12.2; Blood Urea Nitrogen 12 mg/dL (7-18); Calcium 8.9 mg/dL (8.5-10.1); Carbon Dioxide 27 mmol/L (21-32); Chloride 109 mmol/L (98-107); GFR African American > 60 mL/min; GFR Non-African American > 60 mL/min; Glucose 122 mg/dL (74-106); Sodium 141 mmol/L (136-145)
[2018-08-20 13:06] LABS: Alkaline Phosphatase 104 U/L (45-117); Bilirubin, Total 0.8 mg/dL (0.2-1.0); Cholesterol 208 mg/dL (< 200); HDL Cholesterol 47 mg/dL (40-59); LDL Cholesterol 147 mg/dL (< 100); Total Protein 7.9 g/dL (6.4-8.2); Triglycerides 118 mg/dL (< 150)
[2018-08-20 13:20] LABS: Free T4 (Free Thyroxine) 1.18 ng/dL (0.89-1.76); Prostate Specific Antigen 0.66 ng/mL (0.0-4.0)
== END | disposition home or self-care (01) ==
LOC: Rad HDHVI 07:53
PROVIDERS: ATTEND Internal Medicine Cardiovascular Disease
DX: I10 Essential (primary) hypertension (principal); E03.9 Hypothyroidism, unspecified; E55.9 Vitamin D deficiency, unspecified; C61 Malignant neoplasm of prostate; E29.1 Testicular hypofunction; E11.9 Type 2 diabetes mellitus without complications; D51.9 Vitamin B12 deficiency anemia, unspecified; N39.0 Urinary tract infection, site not specified; D64.9 Anemia, unspecified; K74.1 Hepatic sclerosis; E78.5 Hyperlipidemia, unspecified
CPT/HCPCS: 36415; 78452; 80053; 80061; 81003; 82306; 83036; 84153; 84403; 84439; 84443; 85025; 93017; 96374; A9500

== ENCOUNTER → 2018-08-24 | Outpatient (CLI) | payer MEDICARE, OTHER | END | disposition home or self-care (01) | LOC: Rad HDHVI 08:03 | PROVIDERS: ATTEND Internal Medicine Cardiovascular Disease | DX: I07.1 Rheumatic tricuspid insufficiency (principal); I10 Essential (primary) hypertension; I48.91 Unspecified atrial fibrillation | CPT/HCPCS: 93306 ==

== ENCOUNTER → 2018-12-23 | Outpatient (CLI) | payer MEDICARE, OTHER | END | disposition home or self-care (01) | LOC: Rad HDHVI 08:54 | PROVIDERS: ATTEND Internal Medicine Cardiovascular Disease | DX: I08.8 Other rheumatic multiple valve diseases (principal); I11.0 Hypertensive heart disease with heart failure; I50.23 Acute on chronic systolic (congestive) heart failure; R00.2 Palpitations; I73.9 Peripheral vascular disease, unspecified; I82.409 Acute embolism and thrombosis of unspecified deep veins of unspecified lower extremity | CPT/HCPCS: 83880; 93306 ==

== ENCOUNTER → 2019-05-03 | Outpatient (CLI) | payer OTHER ==
[~2019-05-03] MED LIST changes: -GLIP-115 PO; +GLIP5TAB12 PO
== END | disposition home or self-care (01) ==
LOC: Rad HDHVI 08:48
PROVIDERS: ATTEND Internal Medicine Cardiovascular Disease
DX: R60.0 Localized edema (principal); I87.2 Venous insufficiency (chronic) (peripheral)
CPT/HCPCS: 93926; 93970

== ENCOUNTER → 2019-12-03 | Outpatient (CLI) | payer OTHER, MEDICAID ==
[~2019-12-03] MED LIST changes: +SODIUM CHLORIDE 0.9% 1,000 ML IV ONE
[2019-12-03 12:40] VITALS: BP 110/74
[2019-12-03 13:24] LABS: Basophils # (auto) 0 10 ^3/uL (0-0.2); Basophils % (auto) 0.3 % (0.0-2.0); Eosinophils # (auto) 0 10 ^3/uL (0-0.8); Eosinophils % (auto) 0.2 % (0.0-7.0); Hematocrit 48.7 % (41.0-53.0); Hemoglobin 15.8 g/dL (13.5-17.5); Lymphocytes # (auto) 1.3 10 ^3/uL (0.4-5.4); Mean Corpuscular Hgb Conc. 32.4 g/dL (32.0-36.0); Mean Corpuscular Volume 89.8 fL (80.0-100.0); Monocytes # (auto) 0.5 10 ^3/uL (0-1.3); Monocytes % (auto) 5.3 % (0.0-12.0); Neutrophils # (auto) 6.8 10 ^3/uL (1.6-8.6); Neutrophils % (auto) 79.2 % (37.0-80.0); Nucleated Red Blood Cells % 0.1 %; Platelet Count (auto) 223 10^3/uL (140-450); Red Blood Cells 5.43 10^6/uL (4.5-5.90); Red Cell Distribution Width 15.3 % (11.8-14.3); White Blood Cell 8.5 10^3/uL (4.4-10.8)
[2019-12-03 13:32] LABS: Albumin 3.7 g/dL (3.4-5.0); Calcium 8.8 mg/dL (8.5-10.1); Magnesium 2.2 mg/dL (1.6-2.6); Potassium 3.9 mmol/L (3.5-5.1)
[2019-12-03 13:41] LABS: BUN/Creatinine Ratio 14.7; Bilirubin, Total 0.9 mg/dL (0.2-1.0); Total Protein 7.5 g/dL (6.4-8.2)
[2019-12-03 14:40] VITALS: BP 132/88
[2019-12-03 15:51] LABS: Urine Blood Negative /uL (Negative); Urine Specific Gravity 1.034 (1.001-1.035)
== END | disposition home or self-care (01) ==
LOC: CHF HDHVI 11:25
PROVIDERS: ATTEND Internal Medicine Cardiovascular Disease
DX: E86.0 Dehydration (principal); D64.9 Anemia, unspecified; E83.40 Disorders of magnesium metabolism, unspecified; N39.0 Urinary tract infection, site not specified; E11.65 Type 2 diabetes mellitus with hyperglycemia
CPT/HCPCS: 36415; 80053; 81003; 82962; 83036; 83735; 85025; 87086; 96360; 96372; G0463; J7030

== ENCOUNTER → 2020-06-06 | Outpatient (CLI) | payer OTHER, MEDICAID ==
[~2020-06-06] MED LIST changes: -SODIUM CHLORIDE 0.9% 1,000 ML IV ONE
== END | disposition home or self-care (01) ==
LOC: Rad HDHVI 10:59
PROVIDERS: ATTEND Internal Medicine Cardiovascular Disease
DX: I51.7 Cardiomegaly (principal); I25.10 Atherosclerotic heart disease of native coronary artery without angina pectoris; I82.409 Acute embolism and thrombosis of unspecified deep veins of unspecified lower extremity
CPT/HCPCS: 93306

== ENCOUNTER → 2020-06-08 | Outpatient (CLI) | payer OTHER, MEDICAID ==
[2020-06-08 12:04] LABS: Urine Blood Negative /uL (Negative)
[2020-06-08 12:09] LABS: Basophils # (auto) 0 10 ^3/uL (0-0.2); Basophils % (auto) 0.5 % (0.0-2.0); Eosinophils # (auto) 0.1 10 ^3/uL (0-0.8); Eosinophils % (auto) 0.6 % (0.0-7.0); Hematocrit 48.1 % (41.0-53.0); Hemoglobin 15.8 g/dL (13.5-17.5); Lymphocytes # (auto) 1.8 10 ^3/uL (0.4-5.4); Lymphocytes % (auto) 21.6 % (10.0-50.0); Mean Corpuscular Hemoglobin 29.1 pg (28.0-32.0); Mean Corpuscular Hgb Conc. 32.8 g/dL (32.0-36.0); Mean Corpuscular Volume 88.6 fL (80.0-100.0); Monocytes # (auto) 0.5 10 ^3/uL (0-1.3); Monocytes % (auto) 5.5 % (0.0-12.0); Neutrophils % (auto) 71.8 % (37.0-80.0); Nucleated Red Blood Cells % 0.1 %; Platelet Count (auto) 285 10^3/uL (140-450); Red Blood Cells 5.43 10^6/uL (4.5-5.90); Red Cell Distribution Width 15.5 % (11.8-14.3); White Blood Cell 8.4 10^3/uL (4.4-10.8)
[2020-06-08 12:14] LABS: Potassium 3.8 mmol/L (3.5-5.1)
[2020-06-08 12:22] LABS: BUN/Creatinine Ratio 13.1; Bilirubin, Total 0.8 mg/dL (0.2-1.0); Calcium 9.1 mg/dL (8.5-10.1); Total Protein 8.1 g/dL (6.4-8.2)
[2020-06-08 12:31] LABS: Free T4 (Free Thyroxine) 0.96 ng/dL (0.89-1.76)
[2020-06-08 12:32] LABS: Prostate Specific Antigen 0.73 ng/mL (0.0-4.0)
== END | disposition home or self-care (01) ==
LOC: LAB 09:04
PROVIDERS: ATTEND Internal Medicine Cardiovascular Disease
DX: C61 Malignant neoplasm of prostate (principal); D51.3 Other dietary vitamin B12 deficiency anemia; I10 Essential (primary) hypertension; E11.9 Type 2 diabetes mellitus without complications; E55.9 Vitamin D deficiency, unspecified; D64.9 Anemia, unspecified; R00.2 Palpitations; R53.1 Weakness; R30.0 Dysuria
CPT/HCPCS: 36415; 80053; 80061; 81003; 82306; 82607; 83036; 84153; 84403; 84439; 84443; 85025

== ENCOUNTER → 2020-06-28 | Outpatient (CLI) | payer OTHER, MEDICAID ==
[~2020-06-28] VITALS: Ht 175.3 cm; Wt 115.7 kg
[~2020-06-28] MED LIST changes: +ADENOSINE 90 MG/30 ML INJ IV ONE; +ADENOSINE 97 MG in GIVE UN-DILUTED 0 ML IV ONE
== END | disposition home or self-care (01) ==
LOC: Rad HDHVI 09:02
PROVIDERS: ATTEND Internal Medicine Cardiovascular Disease
DX: R06.02 Shortness of breath (principal); R07.9 Chest pain, unspecified
CPT/HCPCS: 78452; 93005; 96374; 96375; A9500; J0153

== ENCOUNTER → 2020-12-01 | Outpatient (CLI) | payer MEDICAID, MEDICARE, OTHER ==
[~2020-12-01] MED LIST changes: -ADENOSINE 90 MG/30 ML INJ IV ONE; -ADENOSINE 97 MG in GIVE UN-DILUTED 0 ML IV ONE; -HCTZ25T PO; +HYDR25TA5 PO; +IOHEXOL 350 MG/ML 100ML IJ ONE; -LEVO500T21 PO; +LEVO500T31 PO; +diphenhdrAMINE HCL 50 MG/1 ML VL IV ONE; +diphenhdrAMINE HCL 50 MG/1 ML VL ONE; +methylPREDNISolone SOD SUCC 125 MG/2 ML VL IV ONE; +methylPREDNISolone SOD SUCC 125 MG/2 ML VL ONE
[2020-12-01 09:26] VITALS: BP 154/82
[2020-12-01 10:13] VITALS: BP 157/81
== END | disposition home or self-care (01) ==
LOC: Rad HDHVI 09:15
PROVIDERS: ATTEND Internal Medicine Cardiovascular Disease
DX: I73.9 Peripheral vascular disease, unspecified (principal); I10 Essential (primary) hypertension; R06.02 Shortness of breath; R51.9 Headache, unspecified; R07.9 Chest pain, unspecified
CPT/HCPCS: 70496; 96374; 96375; G0463; J1200; J2930; Q9967